=== PATIENT | female | born 1945 | race Caucasian/White ===

== ENCOUNTER → 2018-01-11 | Outpatient (CLI) | payer MEDICARE ==
[~2018-01-11] MED LIST: ASPIRIN EC81 MG PO; CEFUROXIME250 MG PO; COLESTID1 G PO; COLESTIPOL HCL1 GM PO; COZAAR100 MG PO; COZAAR25 MG PO; COZAAR50 MG PO; DAYPRO600 MG PO; DETROL LA4 MG PO; ESTRACE2 MG PO; FEOSOL325 MG PO; FUROSEMIDE40 MG PO; GLIPIZIDE XL2.5 MG PO; IPRATROPIU0.2 MG/1 M NEB; ISOSORBIDE MONO30 MG PO; K DUR10 MEQ PO; LEVAQUIN500 MG PO; LEVOXYL125 MCG PO; METOPROLOL TART25 MG PO; NEXIUM40 MG PO; NORVASC5 MG PO; PLAVIX75 MG PO; PROTONIX40 MG/ML PO; SIMVASTATIN40 MG PO; URSODIOL300 MG PO; ZOCOR40 MG PO; ZOFRAN ODT4 MG PO; [UNRECOGNIZED DRUG - REMARK]
--- NOTE | 2018-01-14 16:00 | Diagnostic Imaging Report ---
#[id number] - MGSCRBIL #BILATERAL DIGITAL SCREENING MAMMOGRAM WITH CAD: 01/11/2018 CLINICAL: Routine screening. Comparison is made to exams dated: 10/21/2016 mammogram and 09/18/2015 mammogram - [facility]. Current study contains 4 films. There are scattered fibroglandular elements in both breasts. Current study was also evaluated with a Computer Aided Detection (CAD) system. There are benign vascular calcifications and calcifications in both breasts. No significant masses, calcifications, or other findings are seen in either breast. There has been no significant interval change. IMPRESSION: BENIGN There is no mammographic evidence of malignancy. A 1 year screening mammogram is recommended. The patient will be notified by letter of the results. Steve beaulieu/jay jay:01/14/2018 12:50:12 Educational Coordinator: Little STOVALL(R)(Jasen), [facility] letter sent: Compared to Prior B9 Mammogram BI-RADS: 2 Benign
== END ==
LOC: MAMMO 13:03
PROVIDERS: ATTEND Obstetrics & Gynecology
DX: Z12.31 Encounter for screening mammogram for malignant neoplasm of breast (principal)
CPT/HCPCS: 77067

== ENCOUNTER 2018-06-17 22:21 | Emergency (ER) | payer MEDICARE ==
[~2018-06-17] VITALS: Ht 157.5 cm; Wt 99.8 kg
[2018-06-17] MEDS ORDERED: ONDANSETRON HCL INJ 2 MG/ML VIAL IV STA (22:44)
[2018-06-17] MEDS ORDERED: PANTOPRAZOLE 40 MG 10ML VIAL IV STA (22:44)
[2018-06-17] MEDS ORDERED: SODIUM CHLORIDE 0.9% 500ML 500 ML IV ONE (23:00)
[2018-06-17 23:04] LABS: BASOPHILS % 0.3 % (0.0-1.0); EOSINOPHILS # (AUTO) 0.2 (0.0-0.4); EOSINOPHILS % 2.3 % (0.0-6.0); HEMATOCRIT 41.3 % (34.2-44.1); LYMPHOCYTES # (AUTO) 2.7 (1.0-3.2); MEAN CORPUSCULAR HEMOGLOBIN 32.4 pg (28-32); MEAN CORPUSCULAR HGB CONC 33.9 g/dL (31-35); MEAN CORPUSCULAR VOLUME 95.6 fL (81-99); MONOCYTES # (AUTO) 0.9 (0.2-0.8); MONOCYTES % 10.9 % (4.4-11.3); NEUTROPHILS # (AUTO) 4.1 (2.1-6.9); PLATELET COUNT 202 x10e3/uL (140-360); RED BLOOD COUNT 4.32 x10e6/uL (3.6-5.1); RED CELL DISTRIBUTION WIDTH 13.9 % (11.7-14.4)
[2018-06-17 23:17] LABS: CLARITY,URINE SL CLOUDY (CLEAR); COLOR,URINE YELLOW (YELLOW)
[2018-06-17 23:18] LABS: BACTERIA,URINE FEW /HPF; BILIRUBIN,URINE NEGATIVE (NEGATIVE); EPITHELIAL CELLS,URINE FEW /LPF; KETONES,URINE NEGATIVE (NEGATIVE); LEUKOCYTE ESTERASE ,URINE 1+ (NEGATIVE); NITRITE,URINE NEGATIVE (NEGATIVE); PROTEIN,URINE DIPSTICK NEGATIVE (NEGATIVE); URINE UROBILINOGEN 0.2 mg/dL (0.2 - 1)
[2018-06-18] MEDS ORDERED: SIMVASTATIN40 MG PO (00:01)
[2018-06-18] MEDS ORDERED: OXAPROZIN600 MG PO (00:01)
[2018-06-18 00:49] LABS: INR 0.89; PARTIAL THROMBOPLASTIN TIME 23.1 seconds (23.8-35.5); PROTHROMBIN TIME 12.9 seconds (11.9-14.5)
[2018-06-18 00:53] LABS: ALBUMIN 3.6 g/dL (3.5-5.0); ALBUMIN/GLOBULIN RATIO 0.9 (0.8-2.0); ANION GAP 20.6 mmol/L (8-16); CALCIUM 9.5 mg/dL (8.4-10.2); CREATININE, SERUM 0.98 mg/dL (0.57-1.11); MAGNESIUM 1.7 MG/DL (1.3-2.1); POTASSIUM 4.6 mmol/L (3.5-5.1)
[2018-06-18 00:59] LABS: CREATINE KINASE MB 0.5 ng/mL (0-5.0)
[2018-06-18] MEDS ORDERED: SODIUM CHLORIDE 0.9% 500ML 500 ML IV ONE (01:45)
[2018-06-18] MEDS ORDERED: ONDANSETRON HCL INJ 2 MG/ML VIAL ONE (01:47)
[2018-06-18] MEDS ORDERED: PANTOPRAZOLE 40 MG 10ML VIAL ONE (01:47)
[2018-06-18] MEDS ORDERED: SODIUM CHLORIDE 0.9% 1000ML 1,000 ML IV STA (01:48)
--- NOTE | 2018-06-18 01:58 | Diagnostic Imaging Report ---
EXAM: CT ABDOMEN AND PELVIS with IV CONTRAST DATE: 06/18/2018 10:46 PM Time stamp on Exam: 0125 hours INDICATION: Right upper quadrant ultrasound COMPARISON: None TECHNIQUE: The abdomen and pelvis were scanned using a multidetector helical scanner. Coronal and sagittal reformations were obtained. Dose modulation, iterative reconstruction, and/or weight based adjustment of the mA/kV was utilized to reduce the radiation dose to as low as reasonably achievable. Routine protocol performed. IV Contrast: 100 cc Isovue-370 Oral Contrast: Water FINDINGS: LOWER THORAX: No consolidations LIVER: No masses BILIARY: Cholecystectomy without ductal dilation. SPLEEN: No masses PANCREAS: No masses ADRENALS: No nodules KIDNEYS: Symmetric perfusion. No enhancing masses. No hydronephrosis. GI TRACT: No distention, wall thickening or evidence of obstruction. Sigmoid colon diverticulosis. VESSELS: Unremarkable PERITONEUM/RETROPERITONEUM: No free air or fluid LYMPH NODES: No lymphadenopathy REPRODUCTIVE ORGANS: The uterus and ovaries are not visualized. BLADDER: Unremarkable SOFT TISSUES: Tiny fat-containing umbilical hernia. BONES: No suspicious bone lesions. IMPRESSION: No acute findings. Signed by: Dr. Melissa Ni M.D. on 06/18/2018 1:55 AM
[2018-06-18 03:19] VITALS: BP 137/53
[2018-06-18] MEDS ORDERED: IOPAMIDOL 370 MG/ML 200 ML INFUS..BTL INJ ONE (04:15)
[2018-06-18] MEDS ORDERED: SODIUM CHLORIDE 0.9% 50ML 50 ML ONE (04:15)
== END 2018-06-18 03:33 | disposition home or self-care (01) ==
LOC: ER 22:21
DX: R10.11 Right upper quadrant pain (principal); R10.13 Epigastric pain; N30.90 Cystitis, unspecified without hematuria; I10 Essential (primary) hypertension; E11.9 Type 2 diabetes mellitus without complications; E03.9 Hypothyroidism, unspecified; K21.9 Gastro-esophageal reflux disease without esophagitis; I50.9 Heart failure, unspecified
CPT/HCPCS: 36415; 74177; 80053; 81001; 82150; 82550; 82553; 83690; 83735; 84484; 85025; 85610; 85730; 87086; 87186; 93005; 99284; J7030; J7040; Q9967; J2405

== ENCOUNTER → 2019-11-16 | Outpatient (CLI) | payer MEDICARE ==
[~2019-11-16] MED LIST changes: +OXAPROZIN600 MG PO
--- NOTE | 2019-11-22 06:16 | Polysomnography ---
DATE OF STUDY: REFERRING PHYSICIAN: STUDY: Polysomnogram Patient of [facility] and Dr. Carroll. FINDINGS: The patient with a history of chronic edema, daytime hypersomnolence, and snoring. The patient is 275 pounds, 5 feet 2 inches. Body mass index 50. Neck size 16. She was monitored using standard EEG lead montage including electrooculogram, submentalis EMG, anterior tibialis EMG, nasal and oral thermistors, ribcage and abdominal strain gauge monitor. The study was abnormal. A split night study was ordered, but she did not qualify for that. Diagnostic study was performed. Sleep onset latency was 31 minutes. Sleep efficiency 83%. All stages of sleep recorded. There were 12 obstructive apneas, average duration 10 seconds, and 1 central, 21 hypopneas. Apnea-hypopnea index was 51. The respiratory disturbance index 16.9. Findings consistent with mild obstructive sleep apnea. Certainly evaluation of the nasal and oropharynx should be considered as well assay of thyroid function. Weight reduction should be part of the patient's therapeutic program. There was significant O2 desaturation during the night as low as 85%, might explain for chronic edema. The patient was fitted with a full face mask, [employer] AirFit F20 small, but the mask was not employed as the patient did not meet criteria for split night study. IMPRESSIONS: Mild obstructive sleep apnea with significant O2 desaturation. MD MOLLY Reyna/JERIL /[id number]
== END ==
LOC: SLEEP 20:42
PROVIDERS: ATTEND Internal Medicine Pulmonary Disease
DX: G47.33 Obstructive sleep apnea (adult) (pediatric) (principal)
CPT/HCPCS: 95810

== ENCOUNTER 2021-04-20 15:04 | Emergency (ER) | payer MEDICARE ==
[~2021-04-20] VITALS: Ht 154.9 cm; Wt 117.9 kg
[2021-04-20] MEDS ORDERED: LORATADINE10 MG PO (16:26)
[2021-04-20] MEDS ORDERED: IPRATROPIU0.2 MG/1 M INH (16:26)
[2021-04-20] MEDS ORDERED: OMEPRAZOLE40 MG PO (16:26)
[2021-04-20] MEDS ORDERED: ALBUTEROL0.63 MG/3 NEB (16:26)
[2021-04-20] MEDS ORDERED: ACETAMINOPHEN-1 EAC3 PO (16:27)
== END 2021-04-20 16:33 | disposition home or self-care (01) ==
LOC: FSED 15:11
DX: R50.9 Fever, unspecified (principal); R05 Cough; U07.1 COVID-19; I10 Essential (primary) hypertension; E11.9 Type 2 diabetes mellitus without complications; I50.9 Heart failure, unspecified; E78.5 Hyperlipidemia, unspecified; K21.9 Gastro-esophageal reflux disease without esophagitis
CPT/HCPCS: 71046; 83518; 87400; 99283; U0002

== ENCOUNTER 2021-08-04 13:12 | Emergency (ER) | payer MEDICARE ==
[~2021-08-04] VITALS: Ht 154.9 cm; Wt 113.4 kg
[~2021-08-04 13:12] MED LIST changes: +ACETAMINOPHEN-1 EAC3 PO; +ALBUTEROL0.63 MG/3 NEB; +IPRATROPIU0.2 MG/1 M INH; +LORATADINE10 MG PO; +OMEPRAZOLE40 MG PO
[2021-08-04] MEDS ORDERED: CEFDINIR300 MG PO (13:50)
[2021-08-04] MEDS ORDERED: PYRIDIUM100 MG PO (13:51)
== END 2021-08-04 14:09 | disposition home or self-care (01) ==
LOC: FSED 13:22
DX: R30.0 Dysuria (principal); N30.00 Acute cystitis without hematuria; I10 Essential (primary) hypertension; E11.9 Type 2 diabetes mellitus without complications; I50.9 Heart failure, unspecified; E78.5 Hyperlipidemia, unspecified; K21.9 Gastro-esophageal reflux disease without esophagitis; I25.10 Atherosclerotic heart disease of native coronary artery without angina pectoris; J45.909 Unspecified asthma, uncomplicated
CPT/HCPCS: 81003; 99283

== ENCOUNTER 2021-08-29 14:14 | Emergency (ER) | payer MEDICARE ==
[~2021-08-29] VITALS: Ht 157.5 cm; Wt 108.9 kg
[~2021-08-29 14:14] MED LIST changes: +CEFDINIR300 MG PO; +PYRIDIUM100 MG PO
[2021-08-29] MEDS ORDERED: SODIUM CHLORIDE 0.9% 1000ML 1,000 ML IV STA (14:56)
[2021-08-29] MEDS ORDERED: ACETAMINOPHEN 325 MG TAB PO STA (14:56)
[2021-08-29] MEDS ORDERED: CEFTRIAXONE 1 GM VIAL IV ONE (15:00)
[2021-08-29] MEDS ORDERED: IBUPROFEN 600 MG TAB PO ONE (15:00)
[2021-08-29] MEDS ORDERED: CEFTRIAXONE 1 GM in SODIUM CHLORIDE 0.9% 50ML 50 ML IV ONE (15:15)
[2021-08-29] MEDS ORDERED: ACETAMINOPHEN 325 MG TAB ONE (15:31)
[2021-08-29] MEDS ORDERED: IBUPROFEN 600 MG TAB ONE (15:31)
[2021-08-29] MEDS ORDERED: SODIUM CHLORIDE 0.9% 1000ML 1,000 ML ONE (15:32)
[2021-08-29] MEDS ORDERED: SODIUM CHLORIDE 0.9% 50ML 50 ML ONE (15:32)
[2021-08-29] MEDS ORDERED: CEFTRIAXONE 1 GM VIAL ONE (15:33)
[2021-08-29] MEDS ORDERED: CEFDINIR300 MG PO (16:08)
[2021-08-29] MEDS ORDERED: ACETAMINOPHEN500 MG PO (16:08)
[2021-08-29] MEDS ORDERED: ONDANSETRON ODT4 MG PO (16:08)
[2021-08-29] MEDS ORDERED: PROBIOTIC & AC1 EACH PO (16:08)
[2021-08-29] MEDS ORDERED: AMLODIPINE BESYL5 MG PO (16:16)
[2021-08-29] MEDS ORDERED: FLONASE ALLERG9.9 ML INH (16:16)
[2021-08-29] MEDS ORDERED: SYMBICORT 80-10.2 GM INH (16:16)
[2021-08-29] MEDS ORDERED: MONTELUKAST SOD10 MG PO (16:16)
[2021-08-29] MEDS ORDERED: MELOXICAM7.5 MG PO (16:16)
== END 2021-08-29 16:20 | disposition home or self-care (01) ==
LOC: FSED 14:30
DX: R50.9 Fever, unspecified (principal); N12 Tubulo-interstitial nephritis, not specified as acute or chronic; N30.00 Acute cystitis without hematuria; M54.50 Low back pain, unspecified
CPT/HCPCS: 80053; 81003; 83605; 85025; 87040; 87086; 87186; 99284; J0696; J7030; U0002

== ENCOUNTER → 2021-11-19 | Day surgery (SDC) | payer MEDICARE ==
[2021-11-18 12:56] LABS: BASOPHILS % 0.4 % (0.0-1.0); EOSINOPHILS # (AUTO) 0.2 (0.0-0.4); HEMATOCRIT 39.6 % (34.2-44.1); HEMOGLOBIN 12.8 g/dL (12.0-16.0); LYMPHOCYTES # (AUTO) 2.6 (1.0-3.2); LYMPHOCYTES % 28.9 % (18.0-39.1); MEAN CORPUSCULAR HGB CONC 32.3 g/dL (31-35); MEAN CORPUSCULAR VOLUME 102.1 fL (81-99); MONOCYTES % 11.3 % (4.4-11.3); NEUTROPHILS # (AUTO) 5.1 (2.1-6.9); NEUTROPHILS % 57.2 % (38.7-80.0); PLATELET COUNT 186 x10e3/uL (140-360); RED BLOOD COUNT 3.88 x10e6/uL (3.6-5.1); RED CELL DISTRIBUTION WIDTH 13.2 % (11.7-14.4)
[2021-11-18 13:14] LABS: ANION GAP 13.2 mmol/L (8-16); CALCIUM 9.4 mg/dL (8.4-10.2); CREATININE, SERUM 0.81 mg/dL (0.57-1.11); POTASSIUM 4.2 mmol/L (3.5-5.1)
[~2021-11-19] MED LIST changes: +ACETAMINOPHEN500 MG PO; +AMLODIPINE BESYL5 MG PO; +BELLADONNA/OPIUM 30 MG SUPP RC ONE; +CEFTRIAXONE 1 GM VIAL ONE; +EPHEDRINE SULFATE INJ 50 MG/ML VIAL ONE; +FAMOTIDINE20 MG PO; +FENTANYL CITRATE/PF 100MCG/2 ML INJ ONE; +FLONASE ALLERG9.9 ML INH; +GENTAMICIN 80MG/NS 100 ML 200 ML IV ONE; +IOPAMIDOL 300MG/ML 50ML INFUS..BTL IV ONE; +LEVOCETIRIZINE D5 MG; +LIDOCAINE HCL 2% LOCAL INJ 5 ML SDV VIAL INJ ONE; +MELOXICAM7.5 MG PO; +MONTELUKAST SOD10 MG PO; +ONDANSETRON HCL INJ 2MG/ML 2ML 2 MG/ML VIAL ONE; +ONDANSETRON ODT4 MG PO; +OXYBUTYNIN CHLOR5 MG PO; +POVIDONE IODINE 0.05% 0.05 % ML PO ONE; +PROBIOTIC & AC1 EACH PO; +PROPOFOL IV EMULSION 10 MG/ML 20 ML VIAL ONE; +SEVOFLURANE INHAL SOLN 250 ML PEN BTL ONE; +SODIUM CHLORIDE 0.9% 50ML 50 ML ONE; +SYMBICORT 80-10.2 GM INH
[2021-11-19 13:15] VITALS: BP 143/60
== END | disposition home or self-care (01) ==
LOC: OR 08:20
PROVIDERS: ATTEND Urology
DX: N30.10 Interstitial cystitis (chronic) without hematuria (principal); N39.46 Mixed incontinence; N81.2 Incomplete uterovaginal prolapse; N95.2 Postmenopausal atrophic vaginitis; N36.2 Urethral caruncle; N32.3 Diverticulum of bladder; N13.8 Other obstructive and reflux uropathy; G47.33 Obstructive sleep apnea (adult) (pediatric); J44.9 Chronic obstructive pulmonary disease, unspecified; I25.2 Old myocardial infarction; E66.01 Morbid (severe) obesity due to excess calories; E11.9 Type 2 diabetes mellitus without complications; K21.9 Gastro-esophageal reflux disease without esophagitis; K58.9 Irritable bowel syndrome, unspecified; I44.0 Atrioventricular block, first degree; I10 Essential (primary) hypertension; E78.5 Hyperlipidemia, unspecified; I25.10 Atherosclerotic heart disease of native coronary artery without angina pectoris; Z01.810 Encounter for preprocedural cardiovascular examination; Z01.812 Encounter for preprocedural laboratory examination; Z20.822 Contact with and (suspected) exposure to COVID-19; Z79.84 Long term (current) use of oral hypoglycemic drugs; Z79.899 Other long term (current) drug therapy; Z86.19 Personal history of other infectious and parasitic diseases
CPT/HCPCS: 36415 ×2; 52260; 74420; 80048; 82948; 85025; 93005; C1758; J0696; J1580; J2001; J2405; J2704; J3010; Q9967; U0002

== ENCOUNTER 2021-11-26 16:14 | Emergency (ER) | payer MEDICARE ==
[~2021-11-26] VITALS: Ht 157.5 cm; Wt 117.9 kg
[~2021-11-26 16:14] MED LIST changes: -BELLADONNA/OPIUM 30 MG SUPP RC ONE; -CEFTRIAXONE 1 GM VIAL ONE; -EPHEDRINE SULFATE INJ 50 MG/ML VIAL ONE; -FAMOTIDINE20 MG PO; -FENTANYL CITRATE/PF 100MCG/2 ML INJ ONE; -GENTAMICIN 80MG/NS 100 ML 200 ML IV ONE; -IOPAMIDOL 300MG/ML 50ML INFUS..BTL IV ONE; -LIDOCAINE HCL 2% LOCAL INJ 5 ML SDV VIAL INJ ONE; -ONDANSETRON HCL INJ 2MG/ML 2ML 2 MG/ML VIAL ONE; -POVIDONE IODINE 0.05% 0.05 % ML PO ONE; -PROPOFOL IV EMULSION 10 MG/ML 20 ML VIAL ONE; -SEVOFLURANE INHAL SOLN 250 ML PEN BTL ONE; -SODIUM CHLORIDE 0.9% 50ML 50 ML ONE
[2021-11-26] MEDS ORDERED: SODIUM CHLORIDE 0.9% 1000ML 1,000 ML IV STA (16:50)
[2021-11-26] MEDS ORDERED: SODIUM CHLORIDE 0.9% 50ML 50 ML ONE (17:08)
[2021-11-26] MEDS ORDERED: IOPAMIDOL 370 MG/ML 200 ML INFUS..BTL INJ ONE (17:08)
[2021-11-26] MEDS ORDERED: SODIUM CHLORIDE 0.9% 1000ML 1,000 ML ONE (17:25)
[2021-11-26] MEDS ORDERED: ONDANSETRON ODT4 MG PO (18:02)
[2021-11-26] MEDS ORDERED: FAMOTIDINE20 MG PO (18:02)
[2021-11-26 18:34] VITALS: BP 148/80
== END 2021-11-26 18:25 | disposition home or self-care (01) ==
LOC: FSED 16:32
DX: R10.9 Unspecified abdominal pain (principal); K52.9 Noninfective gastroenteritis and colitis, unspecified; I12.9 Hypertensive chronic kidney disease with stage 1 through stage 4 chronic kidney disease, or unspecified chronic kidney disease; E11.22 Type 2 diabetes mellitus with diabetic chronic kidney disease; N18.9 Chronic kidney disease, unspecified; E78.5 Hyperlipidemia, unspecified; E03.9 Hypothyroidism, unspecified; I25.10 Atherosclerotic heart disease of native coronary artery without angina pectoris; K21.9 Gastro-esophageal reflux disease without esophagitis
CPT/HCPCS: 74177; 80053; 81003; 82270; 85025; 99284; J7030; Q9967

== ENCOUNTER 2021-12-29 07:09 | Inpatient (IN) | payer MEDICARE ==
[2021-12-29] VITALS (7 sets, daily range): BP systolic 105–140; BP diastolic 53–65
[~2021-12-29] VITALS: Ht 157.5 cm; Wt 117.9 kg
[~2021-12-29 07:09] MED LIST changes: +FAMOTIDINE20 MG PO; -LEVOCETIRIZINE D5 MG; +LEVOCETIRIZINE D5 MG PO
[2021-12-29] MEDS: DEXTROSE 50% SYRINGE 50 ML IV ONE ×2 (07:25→09:02)
[2021-12-29] MEDS ORDERED: SODIUM CHLORIDE 0.9% 500ML 500 ML IV ONE (07:30)
[2021-12-29] MEDS ORDERED: DEXTROSE 50% SYRINGE 50 ML IV ONE (07:35)
[2021-12-29 08:04] LABS: BASOPHILS # (AUTO) 0.1 (0.0-0.1); BASOPHILS % 0.8 % (0.0-1.0); EOSINOPHILS # (AUTO) 0.6 (0.0-0.4); EOSINOPHILS % 5.9 % (0.0-6.0); HEMATOCRIT 39.8 % (34.2-44.1); HEMOGLOBIN 13.7 g/dL (12.0-16.0); LYMPHOCYTES # (AUTO) 1.6 (1.0-3.2); LYMPHOCYTES % 16.8 % (18.0-39.1); MEAN CORPUSCULAR HEMOGLOBIN 32.1 pg (28-32); MEAN CORPUSCULAR HGB CONC 34.4 g/dL (31-35); MEAN CORPUSCULAR VOLUME 93.2 fL (81-99); MONOCYTES # (AUTO) 0.6 (0.2-0.8); MONOCYTES % 6.6 % (4.4-11.3); NEUTROPHILS # (AUTO) 6.4 (2.1-6.9); NEUTROPHILS % 66.2 % (38.7-80.0); PLATELET COUNT 435 x10e3/uL (140-360); RED BLOOD COUNT 4.27 x10e6/uL (3.6-5.1); RED CELL DISTRIBUTION WIDTH 14.1 % (11.7-14.4)
[2021-12-29] MEDS ORDERED: DIATRIZOATE MEGL/DIATRIZOA SOD 30 ML BTL PO ONE (08:17)
[2021-12-29 08:26] LABS: INR 0.98; PARTIAL THROMBOPLASTIN TIME 28.1 seconds (23.8-35.5); PROTHROMBIN TIME 13.9 seconds (11.9-14.5)
[2021-12-29 08:34] LABS: CLARITY,URINE TURBID (CLEAR); COLOR,URINE YELLOW (YELLOW); KETONES,URINE NEGATIVE (NEGATIVE); LEUKOCYTE ESTERASE ,URINE MODERATE (NEGATIVE); NITRITE,URINE POSITIVE (NEGATIVE); PROTEIN,URINE DIPSTICK NEGATIVE (NEGATIVE); URINE UROBILINOGEN 0.2 mg/dL (0.2 - 1)
[2021-12-29 08:34] LABS: ALBUMIN 2.7 g/dL (3.5-5.0); ALBUMIN/GLOBULIN RATIO 0.6 (0.8-2.0); ANION GAP 21.3 mmol/L (8-16); CALCIUM 9.9 mg/dL (8.4-10.2); CREATININE, SERUM 1.28 mg/dL (0.57-1.11); MAGNESIUM 1.7 MG/DL (1.3-2.1); PHOSPHORUS 3.1 MG/DL (2.3-4.7); POTASSIUM 3.3 mmol/L (3.5-5.1)
[2021-12-29 08:41] LABS: CREATINE KINASE MB 0.7 ng/mL (0-5.0)
[2021-12-29 08:43] LABS: BACTERIA,URINE MANY /HPF; EPITHELIAL CELLS,URINE FEW /LPF; RBC,URINE 21-50 /HPF (0-5); WBC,URINE (MAN) >50 /HPF (0-5)
[2021-12-29] MEDS ORDERED: DEXTROSE 50% SYRINGE 50 ML IV STA ×2 (08:43→08:45)
[2021-12-29] MEDS ORDERED: SODIUM CHLORIDE 0.9% 50ML 50 ML ONE (08:55)
[2021-12-29] MEDS ORDERED: IOPAMIDOL 370 MG/ML 200 ML INFUS..BTL INJ ONE (08:55)
[2021-12-29] MEDS ORDERED: POTASSIUM CHLORIDE 20 MEQ TAB CR PO STA (09:09)
[2021-12-29] MEDS ORDERED: CEFTRIAXONE 1 GM in SODIUM CHLORIDE 0.9% 50ML 50 ML IV ONE (09:15)
[2021-12-29] MEDS ORDERED: METRONIDAZOLE 500MG/NS 100ML 100 ML IV STA (10:18)
[2021-12-29] MEDS ORDERED: DEXTROSE 5%/0.45% SOD CHL 1,000 ML IV ONE (10:30)
[2021-12-29] MEDS ORDERED: GLIPIZIDE XL10 MG PO (14:26)
[2021-12-29] MEDS ORDERED: SYMBICORT 16010.2 GM INH (14:26)
[2021-12-29] MEDS ORDERED: OMEPRAZOLE40 MG PO (14:27)
[2021-12-29] MEDS ORDERED: COLESTIPOL HCL1 GM PO (14:32)
[2021-12-29] MEDS ORDERED: FUROSEMIDE40 MG PO (14:32)
[2021-12-29] MEDS ORDERED: ONDANSETRON ODT4 MG PO (14:32)
[2021-12-29] MEDS ORDERED: VSL#3 CAPSULE1 EACH PO (14:32)
[2021-12-29] MEDS: NYSTATIN 100,000 UNITS/GM CRM 30GM TUBE TOP SCH (17:07)
[2021-12-29] MEDS ORDERED: IMODIUM2 MG PO (19:35)
[2021-12-29] MEDS ORDERED: VANCOCIN HCL250 MG PO (19:35)
[2021-12-30] VITALS (9 sets, daily range): BP systolic 94–123; BP diastolic 50–62
[2021-12-30 05:21] LABS: BASOPHILS % 0.5 % (0.0-1.0); EOSINOPHILS # (AUTO) 0.5 (0.0-0.4); EOSINOPHILS % 6.1 % (0.0-6.0); HEMATOCRIT 35.1 % (34.2-44.1); HEMOGLOBIN 11.9 g/dL (12.0-16.0); LYMPHOCYTES # (AUTO) 1.8 (1.0-3.2); LYMPHOCYTES % 24.1 % (18.0-39.1); MEAN CORPUSCULAR HEMOGLOBIN 31.8 pg (28-32); MEAN CORPUSCULAR HGB CONC 33.9 g/dL (31-35); MEAN CORPUSCULAR VOLUME 93.9 fL (81-99); MONOCYTES # (AUTO) 0.8 (0.2-0.8); NEUTROPHILS # (AUTO) 4.3 (2.1-6.9); NEUTROPHILS % 56.4 % (38.7-80.0); PLATELET COUNT 368 x10e3/uL (140-360); RED BLOOD COUNT 3.74 x10e6/uL (3.6-5.1); RED CELL DISTRIBUTION WIDTH 14.2 % (11.7-14.4)
[2021-12-30 05:44] LABS: ANION GAP 14.3 mmol/L (8-16); CALCIUM 8.5 mg/dL (8.4-10.2); CREATININE, SERUM 0.91 mg/dL (0.57-1.11); POTASSIUM 3.3 mmol/L (3.5-5.1)
[2021-12-30] MEDS: NYSTATIN 100,000 UNITS/GM CRM 30GM TUBE TOP SCH ×2 (08:21→17:08)
[2021-12-30] MEDS ORDERED: ALBUTEROL SULF 0.083% NEB SOLN 3 ML NEB NEB PRN (09:45)
[2021-12-30] MEDS ORDERED: DEXTROSE 50% SYRINGE 50 ML IV PRN (09:45)
[2021-12-30] MEDS ORDERED: CHOLESTYRAMINE 4 GM PACKET PO PRN (09:45)
[2021-12-30] MEDS ORDERED: POTASSIUM CHLORIDE 10MEQ EA PO ONE (10:30)
[2021-12-30] MEDS: VANCOMYCIN HCL 125 MG CAPSULE PO SCH ×3 (10:31→20:49)
[2021-12-30] MEDS: Aztreonam 1 GM in SODIUM CHLORIDE 0.9% 50ML 50 ML IV SCH ×2 (11:47→20:49)
[2021-12-30] MEDS: INSULIN LISPRO 100 UNIT/1 ML 3ML VIAL SQ SCH ×3 (11:48→20:50)
[2021-12-30] MEDS: URSODIOL 300 MG CAP PO SCH ×2 (15:22→20:49)
[2021-12-30] MEDS: FAMOTIDINE 20 MG TAB PO SCH (17:07)
[2021-12-30] MEDS: BIF CMB1 PO SCH (17:08)
[2021-12-30] MEDS: LACT CMB2 PO SCH (17:08)
[2021-12-30] MEDS: OXYBUTYNIN CHLORIDE 5 MG TAB PO SCH (17:08)
[2021-12-30] MEDS: S THERMOPHL PO SCH (17:08)
[2021-12-30] MEDS: BUDESONIDE/FORMOTEROL 160/4.5MCG INHALER INH SCH (19:15)
[2021-12-30] MEDS: SIMVASTATIN 40 MG TAB PO SCH (20:49)
[2021-12-30] MEDS: MONTELUKAST SODIUM 10 MG TAB PO SCH (20:49)
[2021-12-31] VITALS (7 sets, daily range): BP systolic 111–148; BP diastolic 47–63
[2021-12-31 05:01] LABS: BASOPHILS % 0.4 % (0.0-1.0); EOSINOPHILS # (AUTO) 0.4 (0.0-0.4); EOSINOPHILS % 6.1 % (0.0-6.0); HEMATOCRIT 35.4 % (34.2-44.1); HEMOGLOBIN 11.9 g/dL (12.0-16.0); LYMPHOCYTES # (AUTO) 2.1 (1.0-3.2); LYMPHOCYTES % 30.7 % (18.0-39.1); MEAN CORPUSCULAR HEMOGLOBIN 31.7 pg (28-32); MEAN CORPUSCULAR HGB CONC 33.6 g/dL (31-35); MEAN CORPUSCULAR VOLUME 94.4 fL (81-99); MONOCYTES # (AUTO) 0.8 (0.2-0.8); MONOCYTES % 10.9 % (4.4-11.3); NEUTROPHILS # (AUTO) 3.4 (2.1-6.9); NEUTROPHILS % 48.7 % (38.7-80.0); PLATELET COUNT 338 x10e3/uL (140-360); RED BLOOD COUNT 3.75 x10e6/uL (3.6-5.1); RED CELL DISTRIBUTION WIDTH 14.3 % (11.7-14.4)
[2021-12-31] MEDS: LEVOTHYROXINE SODIUM 125 MCG TAB PO SCH (05:12)
[2021-12-31 05:26] LABS: ANION GAP 13.7 mmol/L (8-16); CALCIUM 8.9 mg/dL (8.4-10.2); CREATININE, SERUM 0.75 mg/dL (0.57-1.11); POTASSIUM 3.7 mmol/L (3.5-5.1)
[2021-12-31] MEDS: VANCOMYCIN HCL 125 MG CAPSULE PO SCH ×3 (05:30→23:01)
[2021-12-31] MEDS: BUDESONIDE/FORMOTEROL 160/4.5MCG INHALER INH SCH ×2 (07:27→19:10)
[2021-12-31] MEDS: INSULIN LISPRO 100 UNIT/1 ML 3ML VIAL SQ SCH ×5 (07:30→21:00)
[2021-12-31] MEDS: AMLODIPINE BESYLATE 5 MG TAB PO SCH (08:49)
[2021-12-31] MEDS: FAMOTIDINE 20 MG TAB PO SCH ×2 (08:49→16:30)
[2021-12-31] MEDS: Aztreonam 1 GM in SODIUM CHLORIDE 0.9% 50ML 50 ML IV SCH ×2 (08:49→23:01)
[2021-12-31] MEDS: OXYBUTYNIN CHLORIDE 5 MG TAB PO SCH ×2 (08:49→17:29)
[2021-12-31] MEDS: PANTOPRAZOLE SOD 40 MG TABEC PO SCH (08:49)
[2021-12-31] MEDS: S THERMOPHL PO SCH ×2 (08:50→17:00)
[2021-12-31] MEDS: BIF CMB1 PO SCH ×2 (08:50→17:00)
[2021-12-31] MEDS: LACT CMB2 PO SCH ×2 (08:50→17:00)
[2021-12-31] MEDS: LORATADINE 10 MG TAB PO SCH (08:55)
[2021-12-31] MEDS ORDERED: NON-FORMULARY MEDICATION (Levocetirizine Dihydrochloride 5 MG) PO SCH (09:00)
[2021-12-31] MEDS: NYSTATIN 100,000 UNITS/GM CRM 30GM TUBE TOP SCH ×2 (09:00→17:29)
[2021-12-31] MEDS: URSODIOL 300 MG CAP PO SCH ×4 (09:00→23:01)
[2021-12-31] MEDS: MONTELUKAST SODIUM 10 MG TAB PO SCH (23:01)
[2021-12-31] MEDS: SIMVASTATIN 40 MG TAB PO SCH (23:01)
[2022-01-01 00:29] VITALS: BP 110/62
[2022-01-01 05:42] VITALS: BP 132/68
[2022-01-01] MEDS: LEVOTHYROXINE SODIUM 125 MCG TAB PO SCH (06:00)
[2022-01-01] MEDS: VANCOMYCIN HCL 125 MG CAPSULE PO SCH (06:00)
[2022-01-01] MEDS: BUDESONIDE/FORMOTEROL 160/4.5MCG INHALER INH SCH (06:48)
[2022-01-01] MEDS: INSULIN LISPRO 100 UNIT/1 ML 3ML VIAL SQ SCH (07:30)
[2022-01-01 09:06] VITALS: BP 131/51
[2022-01-01] MEDS: URSODIOL 300 MG CAP PO SCH (09:52)
[2022-01-01] MEDS: PANTOPRAZOLE SOD 40 MG TABEC PO SCH (09:52)
[2022-01-01] MEDS: OXYBUTYNIN CHLORIDE 5 MG TAB PO SCH (09:52)
[2022-01-01] MEDS: FAMOTIDINE 20 MG TAB PO SCH (09:52)
[2022-01-01] MEDS: LORATADINE 10 MG TAB PO SCH (09:52)
[2022-01-01] MEDS: AMLODIPINE BESYLATE 5 MG TAB PO SCH (09:53)
[2022-01-01] MEDS: NYSTATIN 100,000 UNITS/GM CRM 30GM TUBE TOP SCH (09:56)
[2022-01-01 12:10] VITALS: BP 120/55
== END 2022-01-01 14:23 | disposition home or self-care (01) | DRG 372 ==
LOC: ER 07:11 → ERHOLD 10:24 → MED/SURG2 11:56
PROVIDERS: ADMIT Internal Medicine; ATTEND Internal Medicine
DX: A04.72 Enterocolitis due to Clostridium difficile, not specified as recurrent (principal); N39.0 Urinary tract infection, site not specified; N17.9 Acute kidney failure, unspecified; E87.1 Hypo-osmolality and hyponatremia; I13.0 Hypertensive heart and chronic kidney disease with heart failure and stage 1 through stage 4 chronic kidney disease, or unspecified chronic kidney disease; Z68.42 Body mass index [BMI] 45.0-49.9, adult; B96.20 Unspecified Escherichia coli [E. coli] as the cause of diseases classified elsewhere; E86.0 Dehydration; E11.649 Type 2 diabetes mellitus with hypoglycemia without coma; Z79.4 Long term (current) use of insulin; T38.3X5A Adverse effect of insulin and oral hypoglycemic [antidiabetic] drugs, initial encounter; N81.10 Cystocele, unspecified; N81.6 Rectocele; R33.9 Retention of urine, unspecified; N95.2 Postmenopausal atrophic vaginitis; I50.9 Heart failure, unspecified; N18.9 Chronic kidney disease, unspecified; E11.22 Type 2 diabetes mellitus with diabetic chronic kidney disease; J44.9 Chronic obstructive pulmonary disease, unspecified; F32.A Depression, unspecified; Z20.822 Contact with and (suspected) exposure to COVID-19; E03.9 Hypothyroidism, unspecified; R62.7 Adult failure to thrive
CPT/HCPCS: 36415; 70450; 71045; 74177; 80048; 80053; 81001; 82550; 82553; 82948; 83735; 83880; 84100; 84484; 85025; 85610; 85730; 87086; 87186; 93005; 94664; 94799; 99251; 99284; J0696; J7040; J7799; Q9967; U0002

== ENCOUNTER 2022-03-01 15:35 | Emergency (ER) | payer MEDICARE ==
[~2022-03-01] VITALS: Ht 157.5 cm; Wt 101.8 kg
[~2022-03-01 15:35] MED LIST changes: +GLIPIZIDE XL10 MG PO; +IMODIUM2 MG PO; +SYMBICORT 16010.2 GM INH; +VANCOCIN HCL250 MG PO; +VSL#3 CAPSULE1 EACH PO
[2022-03-01] MEDS ORDERED: HYDROCODONE/APAP 5MG-325MG TAB PO ONE (17:30)
[2022-03-01] MEDS ORDERED: CEFTRIAXONE 1 GM VIAL IM ONE (17:30)
[2022-03-01] MEDS ORDERED: ULTRAM50 MG PO (17:58)
[2022-03-01] MEDS ORDERED: AUGMENTIN 500-1 EACH PO ×2 (17:58→18:00)
[2022-03-01] MEDS ORDERED: KETOROLAC TROME10 MG PO (18:00)
[2022-03-01] MEDS ORDERED: HYDROCODONE/APAP 5MG-325MG TAB ONE (18:01)
[2022-03-01] MEDS ORDERED: CEFTRIAXONE 1 GM VIAL ONE (18:02)
[2022-03-01] MEDS ORDERED: SIMVASTATIN40 MG PO (18:19)
[2022-03-01] MEDS ORDERED: GLIPIZIDE XL2.5 MG (18:19)
[2022-03-01] MEDS ORDERED: DETROL LA4 MG PO (18:19)
[2022-03-01] MEDS ORDERED: FLONASE ALLERG9.9 ML INH (18:19)
== END 2022-03-01 18:16 | disposition home or self-care (01) ==
LOC: FSED 16:57
DX: K04.7 Periapical abscess without sinus (principal); I10 Essential (primary) hypertension; E11.9 Type 2 diabetes mellitus without complications; E78.5 Hyperlipidemia, unspecified; J44.9 Chronic obstructive pulmonary disease, unspecified; I50.9 Heart failure, unspecified; N28.9 Disorder of kidney and ureter, unspecified; E03.9 Hypothyroidism, unspecified; I25.10 Atherosclerotic heart disease of native coronary artery without angina pectoris; K21.9 Gastro-esophageal reflux disease without esophagitis
CPT/HCPCS: 96372; 99283; J0696

== ENCOUNTER → 2022-07-27 | Outpatient (CLI) | payer MEDICARE ==
[~2022-07-27] MED LIST changes: +AUGMENTIN 500-1 EACH PO; +GLIPIZIDE XL2.5 MG; +KETOROLAC TROME10 MG PO; +ULTRAM50 MG PO
== END ==
LOC: US 08:40
PROVIDERS: ATTEND Internal Medicine Gastroenterology
DX: K74.69 Other cirrhosis of liver (principal)
CPT/HCPCS: 76700

== ENCOUNTER 2023-10-14 15:30 | Emergency (ER) | payer MEDICARE ==
[~2023-10-14] VITALS: Ht 154.9 cm; Wt 117.9 kg
[~2023-10-14 15:30] MED LIST changes: +ALBUTEROL1.25 MG/3 NEB; +BENZONATATE100 MG PO; +PREDNISONE20 MG PO; +PROAIR DIGIHAL90 MCG INH
[2023-10-14 15:40] VITALS: O2SAT 98
[2023-10-14] MEDS ORDERED: KETOROLAC TROMETHAMINE 30 MG/ML VIAL IV ONE (15:45)
[2023-10-14] MEDS ORDERED: ONDANSETRON HCL INJ 2MG/ML 2ML 2 MG/ML VIAL IV ONE (15:45)
[2023-10-14] MEDS ORDERED: KETOROLAC TROMETHAMINE 30 MG/ML VIAL ONE (16:08)
[2023-10-14] MEDS ORDERED: ONDANSETRON HCL INJ 2MG/ML 2ML 2 MG/ML VIAL ONE (16:08)
[2023-10-14] MEDS ORDERED: CEFTRIAXONE 1 GM VIAL ONE (16:09)
[2023-10-14] MEDS ORDERED: PROBIOTIC & AC1 EACH PO (16:47)
[2023-10-14] MEDS ORDERED: CEFDINIR300 MG PO (16:47)
== END 2023-10-14 17:27 | disposition home or self-care (01) ==
LOC: FSED 15:39
DX: M54.50 Low back pain, unspecified (principal); N12 Tubulo-interstitial nephritis, not specified as acute or chronic; N30.00 Acute cystitis without hematuria; E11.65 Type 2 diabetes mellitus with hyperglycemia; I10 Essential (primary) hypertension; Z87.19 Personal history of other diseases of the digestive system; J44.9 Chronic obstructive pulmonary disease, unspecified; I50.9 Heart failure, unspecified; E78.5 Hyperlipidemia, unspecified
CPT/HCPCS: 74176; 80053; 81003; 85025; 99283; J0696; J1885; J2405

== ENCOUNTER → 2024-05-01 | Day surgery (SDC) | payer MEDICARE ==
[2024-04-27 11:52] LABS: BASOPHILS % 0.3 % (0.0-1.0); EOSINOPHILS # (AUTO) 0.3 (0.0-0.4); EOSINOPHILS % 3.6 % (0.0-6.0); HEMATOCRIT 41.6 % (34.2-44.1); HEMOGLOBIN 13.6 g/dL (12.0-16.0); LYMPHOCYTES # (AUTO) 3.2 (1.0-3.2); LYMPHOCYTES % 36.8 % (18.0-39.1); MEAN CORPUSCULAR HEMOGLOBIN 32.7 pg (28-32); MEAN CORPUSCULAR HGB CONC 32.7 g/dL (31-35); MONOCYTES % 11.6 % (4.4-11.3); NEUTROPHILS # (AUTO) 4.1 (2.1-6.9); NEUTROPHILS % 47.4 % (38.7-80.0); PLATELET COUNT 200 x10e3/uL (140-360); RED BLOOD COUNT 4.16 x10e6/uL (3.6-5.1); RED CELL DISTRIBUTION WIDTH 12.9 % (11.7-14.4); WHITE BLOOD COUNT 8.59 x10e3/uL (4.8-10.8)
[2024-04-27 12:09] LABS: INR 0.98; PROTHROMBIN TIME 13.7 seconds (11.9-14.5)
[2024-04-27 12:10] LABS: PARTIAL THROMBOPLASTIN TIME 28.6 seconds (23.8-35.5)
[2024-04-27 12:13] LABS: ALANINE AMINOTRANSFERASE 40 IU/L (0-55); ALBUMIN 3.1 g/dL (3.5-5.0); ALBUMIN/GLOBULIN RATIO 0.8 (0.8-2.0); ALKALINE PHOSPHATASE 84 IU/L (40-150); ANION GAP 14.6 mmol/L (8-16); BILIRUBIN,TOTAL 0.3 mg/dL (0.2-1.2); BLOOD UREA NITROGEN 25 mg/dL (7-26); BUN/CREATININE RATIO 26 (6-25); CALCIUM 9.6 mg/dL (8.4-10.2); CARBON DIOXIDE 22 mmol/L (22-29); CHLORIDE 109 mmol/L (98-107); CHOL/HDL RATIO 2.5 (3.0-3.6); CHOLESTEROL 130 MD/DL (0-199); CREATININE, SERUM 0.95 mg/dL (0.57-1.11); EST GLOMERULAR FILTRATION RATE 62 ML/MIN (>=60); GLUCOSE 136 mg/dL (74-118); HDL CHOLESTEROL 51 MG/DL (40-60); LDL CHOLESTEROL 55 MG/DL (60-130); POTASSIUM 4.6 mmol/L (3.5-5.1); SODIUM 141 mmol/L (136-145); TOTAL PROTEIN 7.1 g/dL (6.5-8.1); TRIGLYCERIDES 118 MG/DL (0-149)
[2024-04-27 13:19] LABS: COVID 19 ANTIGEN NOT DETECTED (NEGATIVE)
[~2024-05-01] VITALS: Ht 154.9 cm; Wt 113.4 kg
[2024-05-01] VITALS (15 sets, daily range): BP systolic 111–158; BP diastolic 46–78; PULSE 53–60; RESP 12–20; TEMP 96.2–97.6; O2SAT 98–100
[~2024-05-01] MED LIST changes: +CETIRIZINE HCL10 M1 PO; +CYCLOBENZAPRINE5 MG PO; +FENTANYL CITRATE/PF 100MCG/2 ML INJ ONE; +FEROSUL325 MG PO; +HEPARIN SOD (PORCINE) 1000 UNIT/ML 30ML ONE; +HEPARIN SOD/SOD CHLORIDE 2,000 ML ONE; +IOPAMIDOL 370 MG/ML 100 ML INFUS..BTL INJ ONE; +LIDOCAINE HCL 2% LOCAL 20 ML VIAL ONE; +LOSARTAN POTASS25 MG PO; +METOPROLOL SUCC25 MG PO; +MIDAZOLAM HCL 2 MG/2 ML VIAL ONE; +NITROGLYCERIN/D5W 200 MCG/ML 250 ML ONE; +NITROGLYCERIN0.4 MG SL; +POTASSIUM CHLO10 ME1 PO; +SODIUM CHLORIDE 0.9% 1000ML 1,000 ML ONE; +ULTRAM 50MG50 MG PO; +VERAPAMIL HCL 2.5 MG/ML 2 ML VIAL ONE
[2024-05-01] MEDS: ASPIRIN 325 MG TAB ONE (07:52)
== END | disposition home or self-care (01) ==
LOC: CATH LAB 07:18
PROVIDERS: ATTEND Internal Medicine Cardiovascular Disease
DX: I25.119 Atherosclerotic heart disease of native coronary artery with unspecified angina pectoris (principal); R94.39 Abnormal result of other cardiovascular function study; J44.9 Chronic obstructive pulmonary disease, unspecified; Z11.52 Encounter for screening for COVID-19; Z01.810 Encounter for preprocedural cardiovascular examination; Z01.812 Encounter for preprocedural laboratory examination; Z79.84 Long term (current) use of oral hypoglycemic drugs; Z79.1 Long term (current) use of non-steroidal anti-inflammatories (NSAID); Z79.899 Other long term (current) drug therapy; Z68.42 Body mass index [BMI] 45.0-49.9, adult
CPT/HCPCS: 0223U; 36415 ×2; 76937; 80053; 80061; 82948; 85025; 85610; 85730; 93005; 93458; C1887; J1644; J2001; J2250; J3010; J7030; Q9967; 99152

== ENCOUNTER 2025-05-18 15:41 | Emergency (ER) | payer MEDICARE ==
[~2025-05-18] VITALS: Ht 157.5 cm; Wt 101.7 kg
[~2025-05-18 15:41] MED LIST changes: -FENTANYL CITRATE/PF 100MCG/2 ML INJ ONE; -GLIPIZIDE XL2.5 MG; -HEPARIN SOD (PORCINE) 1000 UNIT/ML 30ML ONE; -HEPARIN SOD/SOD CHLORIDE 2,000 ML ONE; -IOPAMIDOL 370 MG/ML 100 ML INFUS..BTL INJ ONE; -LIDOCAINE HCL 2% LOCAL 20 ML VIAL ONE; -MIDAZOLAM HCL 2 MG/2 ML VIAL ONE; -NITROGLYCERIN/D5W 200 MCG/ML 250 ML ONE; -SODIUM CHLORIDE 0.9% 1000ML 1,000 ML ONE; -VERAPAMIL HCL 2.5 MG/ML 2 ML VIAL ONE
[2025-05-18] MEDS ORDERED: CIPRO500 MG PO (16:57)
[2025-05-18 17:30] VITALS: PULSE 71; RESP 18; TEMP 98.1; O2SAT 96
[2025-05-18] MEDS ORDERED: OZEMPIC1 MG/0.71 (18:34)
[2025-05-18] MEDS ORDERED: VENTOLIN HFA18 GM INH (18:34)
== END 2025-05-18 17:30 | disposition home or self-care (01) ==
LOC: FSED 15:52
DX: N39.0 Urinary tract infection, site not specified (principal); R05.9 Cough, unspecified; I13.0 Hypertensive heart and chronic kidney disease with heart failure and stage 1 through stage 4 chronic kidney disease, or unspecified chronic kidney disease; E11.22 Type 2 diabetes mellitus with diabetic chronic kidney disease; N18.9 Chronic kidney disease, unspecified; I50.9 Heart failure, unspecified; I25.10 Atherosclerotic heart disease of native coronary artery without angina pectoris; F41.8 Other specified anxiety disorders; E78.5 Hyperlipidemia, unspecified
CPT/HCPCS: 0223U; 71046; 81003; 87086; 87186; 87400; 93005; 99284

== ENCOUNTER 2025-07-03 16:26 | Emergency (ER) | payer MEDICARE ==
[~2025-07-03] VITALS: Ht 157.5 cm; Wt 99.8 kg
[~2025-07-03 16:26] MED LIST changes: +CIPRO500 MG PO; +OZEMPIC1 MG/0.71; +VENTOLIN HFA18 GM INH
[2025-07-03] MEDS: FAMOTIDINE 20 MG/2 ML VIAL IV STA (18:42)
[2025-07-03] MEDS: ONDANSETRON HCL INJ 2MG/ML 2ML 2 MG/ML VIAL IV STA (18:42)
[2025-07-03] MEDS: SODIUM CHLORIDE 0.9% 1000ML 1,000 ML IV ONE (18:42)
[2025-07-03] MEDS ORDERED: CEPHALEXIN500 MG PO (19:30)
[2025-07-03] MEDS ORDERED: ONDANSETRON ODT4 MG PO (19:30)
[2025-07-03] MEDS: KETOROLAC TROMETHAMINE 30 MG/ML VIAL IV STA (19:48)
[2025-07-03 20:19] VITALS: PULSE 76; RESP 16; TEMP 97.6
[2025-07-03 20:20] VITALS: BP 146/65; PULSE 76; RESP 16; TEMP 97.6; O2SAT 98
== END 2025-07-03 20:40 | disposition home or self-care (01) ==
LOC: FSED 16:46
DX: R11.2 Nausea with vomiting, unspecified (principal); N39.0 Urinary tract infection, site not specified; R10.32 Left lower quadrant pain; E86.0 Dehydration; K42.9 Umbilical hernia without obstruction or gangrene; I70.8 Atherosclerosis of other arteries
CPT/HCPCS: 74176; 80053; 81003; 85025; 99284; J0696; J1308; J1885; J2405; J7030